=== PATIENT | female | born 1955 | race Caucasian/White ===

== ENCOUNTER → 2019-07-13 | Emergency (ER) | payer SELFPAY ==
[~2019-07-13] VITALS: Ht 167.6 cm; Wt 122.7 kg
[~2019-07-13] MED LIST: HYDR-3165 PO; HYDROcodone/APAP 5/325MG 1 TAB TABLET ONE; HYDROcodone/APAP 5/325MG 1 TAB TABLET PO ONE; NAPR220C4 PO; ONDANSETRON PF 4 MG/2 ML VIAL. IVP ONE; TRAM50TA PO
--- NOTE | 2019-07-13 17:46 | PHYS DOC ---
Past History Past Medical History: Arthritis, Depression, Fibromyalgia, GERD, High Cholesterol, IBS, Other Additional Past Medical Histor: urinary incontinence (JEF MARTINS DO) Past Surgical History: Appendectomy, Hysterectomy, Other Additional Past Surgical Histo: cystocele (JEF MARTINS DO) Smoking: Non-smoker Alcohol Use: Occasionally Drug Use: None, Other Social History Narrative: topical marijuana cream (JEF MARTINS DO) Adult General Chief Complaint Chief Complaint: MULTIPLE TRAUMA/FALL HPI HPI Patient is a 63-year-old female presents complaining of right head, right neck, right hip, right knee, and to a much lesser extent right shoulder pain post a fall. Patient was sitting on a suspended bench and did not notice that one of the suspension changes was missing. She fell backwards into her right off of this bench. Bensch was approximately a foot off the ground. She struck her head on a rubberized surface overlying concrete. There was no loss of consciousness. Patient has been having increasing pain since this happened at approximately 3:00 this afternoon. She took her usual pain medicines for her fibromyalgia shortly before this happened. She has taken no additional medicines since this is happened. She denies any numbness or tingling. She has been able to walk.[] (JEF MARTINS DO) Review of Systems Review of Systems Constitutional: Denies fever or chills [] Eyes: Denies change in visual acuity, redness, or eye pain [] HENT: Denies nasal congestion or sore throat [] Respiratory: Denies cough or shortness of breath [] Cardiovascular: No additional information not addressed in HPI [] GI: Denies abdominal pain, nausea, vomiting, bloody stools or diarrhea [] : Denies dysuria or hematuria [] Musculoskeletal: Denies back pain, see history of present illness[] Integument: Denies rash or skin lesions [] Neurologic: Denies focal weakness or sensory changes, see history of present illness [] Endocrine: Denies polyuria or polydipsia [] All other systems were reviewed and found to be within normal limits, except as documented in this note. (JEF MARTINS DO) Allergies Allergies Allergies Coded Allergies Type Severity Reaction Last Updated Verified Penicillins Allergy Severe Anaphylaxis 07/13/19 Yes erythromycin base Allergy Severe Anaphylaxis 07/13/19 Yes (JEF MARTINS DO) Physical Exam Physical Exam Constitutional: Well developed, well nourished, no acute distress, non-toxic appearance. [] HENT: Normocephalic, tenderness to right temporal parietal region, bilateral external ears normal, TMs are clear without any blood or fluid oropharynx moist, no oral exudates, nose normal. [] Eyes: PERRLA, EOMI, conjunctiva normal, no discharge. [] Neck: Normal range of motion, tenderness in the right cervical paraspinal musculature. No step-off or crepitus., supple, no stridor. [] Cardiovascular:Heart rate regular rhythm, no murmur [] Lungs & Thorax: Bilateral breath sounds clear to auscultation [] Abdomen: Bowel sounds normal, soft, no tenderness, no masses, no pulsatile masses. [] Skin: Warm, dry, no erythema, no rash. [] Back: No tenderness, no CVA tenderness. [] Extremities: Right shoulder has full active range of motion. Diffuse muscular tenderness. No increased pain with axial loading. No clavicular tenderness. A joint above and a joined below were evaluated and were normal. She is distally neurovascularly intact. Right hip has diffuse tenderness. No pelvic instability. No crepitus. No increased pain with axial loading. She is distally neurovascularly intact. Right knee has decreased flexion, full extension, no varus or valgus laxity, diffuse tenderness, no edema or effusion when compared with the left side. Negative drawer, negative Filippo test. A joint below was evaluated and was normal. The other 2 extremities show: No tenderness, no cyanosis, no clubbing, ROM intact, no edema. [] Neurologic: Alert and oriented X 3, normal motor function, normal sensory function, no focal deficits noted. [] Psychologic: Affect normal, judgement normal, mood normal. [] ([facility] Current Patient Data Vital Signs Vital Signs Date Time Temp Pulse Resp B/P (MAP) Pulse Ox O2 Delivery O2 Flow Rate FiO2 07/13/19 17:10 98.8 63 20 129/76 (93) Room Air 95.0 07/13/19 17:10 95 ([facility]) EKG EKG [] ([facility]) Radiology/Procedures Radiology/Procedures [] (EIDENJEF STEVENSON DO) Radiology/Procedures CT head/cervical spine: Radiology findings reviewed. No acute intracranial injury or cervical spine injury per radiologist report. Right hip x-ray/right knee x-ray: Advanced osteoarthritis. No obvious displaced fracture on preliminary ED review. Radiology report pending (SOFIA WING DO) Course & Med Decision Making Course & Med Decision Making Pertinent Labs and Imaging studies reviewed. (See chart for details) ED course: Patient arrived, was placed in bed, and tolerated exam well. At the time of this dictation, at 1800, patient care is being endorsed to the nighttime physician pending imaging studies. Patient deferred pain medicine at the time of exam.[] (JEF MARTINS DO) Course & Med Decision Making Imaging Findings reviewed with patient. Pain addressed. Patient is comfortable with discharged home and agrees to follow-up with local PCP. Recommendations are for supportive care. (SOFIA WING DO) Dragon Disclaimer Dragon Disclaimer This electronic medical record was generated, in whole or in part, using a voice recognition dictation system. (JEF MARTINS DO) Departure Departure: Impression: Primary Impression: Minor head injury Additional Impressions: Cervical sprain Right knee pain Right hip pain Disposition: HOME, SELF-CARE Condition: STABLE Referrals: PCP,NO (PCP) Patient Instructions: Cervical Sprain, [id number], Head Injury, Adult, [id number], Hip Pain, Knee Pain Additional Instructions: Please go home and rest. Apply ice to affected areas 20-30 minutes every 2-3 hours. Take tramadol and ibuprofen for pain and hydrocodone as needed for additional relief. Follow-up with your PCP in 2-3 days for reevaluation. Return to the ED if new or worsening symptoms. Scripts Hydrocodone Bit/Acetaminophen (NORCO 5-325 TABLET) 1 Each Tablet 1 TAB PO TID, #15 TAB Prov: SOFIA WING DO 07/13/19 Problem Qualifiers JEF MARTINS DO Jul 13, 2019 17:46 SOFIA WING DO Jul 13, 2019 19:44
--- NOTE | 2019-07-13 18:45 | RAD ---
STUDY: CT head and cervical spine without contrast INDICATION: Fall. Right-sided head injury and neck pain. COMPARISON: None. TECHNIQUE: Axial CT imaging through the head and cervical spine without the use of intravenous contrast. Sagittal and coronal reformats were obtained. One or more of the following individualized dose reduction techniques were utilized for this examination: 1. Automated exposure control 2. Adjustment of the mA and/or kV according to patient size 3. Use of iterative reconstruction technique. FINDINGS: CT head: No acute intracranial hemorrhage. Mahmood-white matter differentiation is maintained. No midline shift or hydrocephalus. The calvarium is intact. Normally aerated paranasal sinuses and mastoid air cells. CT cervical spine: Degraded evaluation below C4 secondary to beam attenuation by the patient's shoulders. This limits evaluation of the osseous structures and central canal contents below this level. Taking into consideration the above limitations, no acute fracture seen throughout the cervical or upper thoracic spine. Multilevel degenerative changes with discogenic arthrosis most pronounced at C5-C6. Minimal grade 1 anterolisthesis of C3 on C4 and C4 on C5. Multilevel facet degeneration, uncovertebral joint hypertrophy and disc osteophyte complex formation. This results in varying degrees of mostly mild to moderate neural foraminal encroachment though more severe on the left at C3-C4. No prevertebral hematoma is apparent. The bilateral carotid systems take a retropharyngeal course. No apical pneumothorax. IMPRESSION: CT head: 1. No acute intracranial abnormality by CT. CT cervical spine: 1. Taking into consideration degraded evaluation below C4 due to body habitus, no acute fracture or traumatic malalignment is identified. 2. Multifactorial degenerative changes, as above. Electronically signed by: CLYDE WEINER MD (07/13/2019 6:43 PM) [facility] [place]
[2019-07-13 19:40] VITALS: BP 118/81
--- NOTE | 2019-07-14 00:23 | RAD ---
Indication:Fall with right hip and knee pain. TECHNIQUE: 3 views of the right knee COMPARISON:None FINDINGS/ impression: No acute fracture or dislocation. Severe tricompartmental osteoarthritis. No joint effusion. Electronically signed by: Jerome Valverde DO (07/14/2019 12:20 AM) [facility]
--- NOTE | 2019-07-14 00:24 | RAD ---
Indication: Fall with right hip pain TECHNIQUE: Single AP view of the pelvis and 2 views of the right hip joint COMPARISON: None FINDINGS/ impression: SI joints within normal limits. No acute fracture or dislocation. Mild bilateral hip joint osteoarthritis. Electronically signed by: Jerome Valverde DO (07/14/2019 12:21 AM) [facility]
== END ==
LOC: ER 16:47
DX: S13.4XXA Sprain of ligaments of cervical spine, initial encounter (principal); S09.90XA Unspecified injury of head, initial encounter; M25.561 Pain in right knee; M25.551 Pain in right hip; M19.90 Unspecified osteoarthritis, unspecified site; M79.7 Fibromyalgia; K21.9 Gastro-esophageal reflux disease without esophagitis; E78.00 Pure hypercholesterolemia, unspecified; K58.9 Irritable bowel syndrome, unspecified; Z88.0 Allergy status to penicillin; Z88.1 Allergy status to other antibiotic agents; W17.89XA Other fall from one level to another, initial encounter; Y93.89 Activity, other specified; Y92.89 Other specified places as the place of occurrence of the external cause; Y99.8 Other external cause status
CPT/HCPCS: 70450; 72125; 73502; 73562; 99284

== ENCOUNTER 2021-04-17 11:41 | Emergency (ER) | payer SELFPAY ==
[~2021-04-17] VITALS: Ht 167.6 cm; Wt 123.5 kg
[~2021-04-17 11:41] MED LIST changes: -HYDROcodone/APAP 5/325MG 1 TAB TABLET ONE; -HYDROcodone/APAP 5/325MG 1 TAB TABLET PO ONE; -ONDANSETRON PF 4 MG/2 ML VIAL. IVP ONE
[2021-04-17] MEDS ORDERED: IV NORMAL SALINE 1,000ML 1,000 ML IV ONE (12:15)
[2021-04-17 12:30] LABS: BASO # 0.1 x10^3/uL (0.0-0.2); BASO % 1 % (0-3); EOS # 0.1 x10^3/uL (0.0-0.7); EOS % 2 % (0-3); HEMOGLOBIN 15.2 g/dL (12.0-15.5); LYMPH % 42 % (24-48); MEAN CORPUSCULAR HEMOGLOBIN 31 pg (25-35); MEAN CORPUSCULAR HGB CONC 34 g/dL (31-37); MEAN CORPUSCULAR VOLUME 91 fL (79-100); MONO # 0.8 x10^3/uL (0.0-1.1); MONO % 11 % (0-9); NEUT # 3.2 x10^3uL (1.8-7.7); NEUT % 45 % (31-73); PLATELET COUNT 291 x10^3/uL (140-400); RED BLOOD COUNT 4.98 x10^6/uL (3.50-5.40); RED CELL DISTRIBUTION WIDTH 13.5 % (11.5-14.5); WHITE BLOOD COUNT 7.3 x10^3/uL (4.0-11.0)
--- NOTE | 2021-04-17 12:37 | PHYS DOC ---
Past History Past Medical History: Arthritis, Depression, Fibromyalgia, GERD, High Cholesterol, IBS, Other Additional Past Medical Histor: urinary incontinence Past Surgical History: Appendectomy, Hysterectomy, Other Additional Past Surgical Histo: cystocele Smoking: Non-smoker Alcohol Use: Occasionally Drug Use: None, Other General Adult EDM: Chief Complaint: CHEST PAIN HPI: HPI: Patient is a 65-year-old female who presents with heart fluttering for the last year. Patient states that symptoms are intermittent. Patient states in the last month she is also been having nausea and lightheadedness with heart fluttering. Patient reports episodes last about 30 minutes. Patient states "this morning my heart fluttering woke me up and I also felt lightheaded, nauseous and some fatigue ". "All felt tired with walking from my car to the house". "The last month I have also just been feeling lightheaded and some dizziness without symptoms of heart fluttering". Patient reports she is been taking Compazine at home for nausea which has helped. Only symptoms at this time are nausea. Denies recent illness. Denies shortness of breath. Denies chest pain. Patient has a history of arthritis, GERD. Review of Systems: Review of Systems: Constitutional: Denies fever or chills Eyes: Denies change in visual acuity HENT: Denies nasal congestion or sore throat Respiratory: Denies cough or shortness of breath Cardiovascular: Reports heart fluttering. Denies chest pain. GI: Reports nausea. Denies abdominal pain, vomiting, diarrhea : Denies dysuria Musculoskeletal: Denies back pain or joint pain Integument: Denies rash Neurologic: Reports lightheadedness. Denies sensory changes or focal weakness. Endocrine: Denies polyuria or polydipsia Lymphatic: Denies swollen glands Psychiatric: Denies depression or anxiety Current Medications: Current Meds: Current Medications Medications (Trade) Dose Ordered Sig/Jahaira Start Time Stop Time Status Last Admin Dose Admin Sodium Chloride 1,000 ml @ 1,000 mls/hr 1X ONCE 04/17/21 12:15 04/17/21 13:14 Allergies: Allergies: Allergies Coded Allergies Type Severity Reaction Last Updated Verified Penicillins Allergy Severe Anaphylaxis 07/13/19 Yes erythromycin base Allergy Severe Anaphylaxis 07/13/19 Yes Physical Exam: PE: Constitutional: Well developed, well nourished, no acute distress, non-toxic appearance. [] HENT: Normocephalic, atraumatic, bilateral external ears normal, oropharynx moist, no oral exudates, nose normal. [] Eyes: PERRLA, EOMI, conjunctiva normal, no discharge. [] Neck: Normal range of motion, no tenderness, supple, no stridor. [] Cardiovascular:Heart rate regular rhythm, no murmur [] Lungs & Thorax: Bilateral breath sounds clear to auscultation [] Abdomen: Bowel sounds normal, soft, no tenderness, no masses, no pulsatile masses. [] Skin: Warm, dry, no erythema, no rash. [] Back: No tenderness, no CVA tenderness. [] Extremities: No tenderness, no cyanosis, no clubbing, ROM intact, no edema. [] Neurologic: Alert and oriented X 3, normal motor function, normal sensory function, no focal deficits noted. [] Psychologic: Affect normal, judgement normal, mood normal. [] EKG: EKG: Sinus rhythm. Heart rate 72 bpm. Intervals normal. Douglass normal. Read by Dr. Madsen. [] Radiology/Procedures: Radiology/Procedures: []AP portable chest radiograph 04/17/2021 Clinical History: Chest pain. An AP erect portable digital radiograph of the chest was obtained. No previous studies are available for comparison. The cardiac silhouette is normal in size. The thoracic aorta is mildly tortuous. Mild elevation right hemidiaphragm is seen. No acute pulmonary infiltrate is noted. No pneumothorax or pleural effusion is seen. Degenerative changes are seen involving the thoracic spine and both shoulders. IMPRESSION: No acute abnormality is seen. Electronically signed by: Lex Brumfield MD (04/17/2021 1:02 PM) [id number] Heart Score: C/O Chest Pain: No Risk Factors: Risk Factors: DM, Current or recent (<one month) smoker, HTN, HLP, family history of CAD, obesity. Risk Scores: Score 0 - 3: 2.5% MACE over next 6 weeks - Discharge Home Score 4 - 6: 20.3% MACE over next 6 weeks - Admit for Clinical Observation Score 7 - 10: 72.7% MACE over next 6 weeks - Early Invasive Strategies Course & Med Decision Making: Course & Med Decision Making Pertinent Labs and Imaging studies reviewed. (See chart for details) [] 65-year-old female who presents with intermittent episodes of heart fluttering for the last year. Patient denies chest pain with episodes. Patient does report she has nausea and lightheadedness when episodes occur. Patient reports episodes last usually around 30 minutes and are always when she is laying in a supine position. Patient states last episode was at 9 AM this morning that woke her up out of her sleep. Patient's only symptom on arrival is nausea. Patient also reports she has had some nausea and fatigue over the last month intermittently without symptoms of her heart fluttering. Patient denies cardiac history. Patient has not received Covid vaccine and denies history of Covid. Patient given Compazine for nausea and normal saline bolus. All labs unremarkable. Chest x-ray is unremarkable. Troponin is negative. UA negative for infection. EKG shows sinus rhythm, heart rate 72 bpm. Discussed results with patient. Patient instructed to follow-up with her PCP for further management. Patient was given referral for cardiology. Patient is hemodynamically stable. Patient is appreciative and okay with discharge plan. Dragon Disclaimer: Marina Disclaimer: This electronic medical record was generated, in whole or in part, using a voice recognition dictation system. Departure Departure: Impression: Primary Impression: Heart palpitations Additional Impression: Nausea Disposition: 01 HOME / SELF CARE / HOMELESS Condition: STABLE Referrals: PCP,DAVID (PCP) Patient Instructions: Palpitations, [id number] Additional Instructions: You are seen in the emergency room for intermittent heart palpitations, nausea. All of your lab work was unremarkable. Your EKG showed normal sinus rhythm. You were given fluids and also Compazine for nausea. I am giving you a referral for cardiology. Please contact your PCP and also wrapper stemmer operator for appointment for further work-up. If you start having chest pain, shortness of breath or any worsening symptoms please return to the emergency room. Dr. Ahumada- Cardiology [address] [facility] [place], [place] [id number] EMERGENCY DEPARTMENT GENERAL DISCHARGE INSTRUCTIONS Thank you for coming to [facility] (ED) today and trusting us with you care. We trust that you had a positivie experience in our Emergency Department. If you wish to speak to the department management, you may call the director at [phone]. YOUR FOLLOW UP INSTRUCTIONS ARE FOLLOWS: 1. Do you have a private Doctor? If you do not have a private doctor, please ask for a resource list of physicians or clinics that may be able to assist you with follow up care. 2. The Emergency Physician has interpreted your x-rays. The X-Ray specialist will also review them. If there is a change in the findings, you will be notified in 48 hours when at all possible. 3. A lab test or culture has been done, your results will be reviewed and you will be notified if you need a change in treatment. ADDITIONAL INSTRUCTIONS AND INFORMATION: 1. Your care today has been supervised by a physician who is specially trained in emergency care. Many problems require more than one evaluation for a complete diagnosis and treatment. We recommend that you schedule your follow up appointment as recommended to ensure complete treatment of you illness or injury. If you are unable to obtain follow up care and continue to have a problem, or if your condition worsens, we recommend that you return to the ED. 2. We are not able to safely determine your condition over the phone nor are we able to give sound medical advice over the phone. For these safety reasons, if you call for medical advice we will ask you to come to the ED for further evaluation. 3. If you have any questions regarding these discharge instructions please call the ED at [phone]. SAFETY INFORMATION: In the interest of safety, wellness, and injury prevention; we encourage you to wear your sealbelt, if you smoke; quite smoking, and we encourage family to use a pro tective helmet for bicycling and other sporting events that present an increased risk for head injury. IF YOUR SYMPTOMS WORSEN OR NEW SYMPTOMS DEVELOP, OR YOU HAVE CONCERNS ABOUT YOUR CONDITION; OR IF YOUR CONDITION WORSENS WHILE YOU ARE WAITING FOR YOUR FOLLOW UP APPOINTMENT; EITHER CONTACT YOUR PRIMARY CARE DOCTOR, THE PHYSICIAN WHOSE NAME AND NUMBER YOU WERE GIVEN, OR RETURN TO THE ED IMMEDIATELY. Scripts Prochlorperazine Maleate (Compazine) 10 Mg Tablet 1 TAB PO TID PRN for nausea for 10 Days, #30 TAB 0 Refills Prov: NATHALY PERRIN APRN 04/17/21 NATHALY PERRIN APRN Apr 17, 2021 12:37
[2021-04-17 12:40] LABS: CALCIUM 8.9 mg/dL (8.5-10.1); CREATININE 0.9 mg/dL (0.6-1.0); GFR 63.2; POTASSIUM 4.8 mmol/L (3.5-5.1)
[2021-04-17] MEDS ORDERED: PROCHLORPERAZINE 10 MG/2 ML VIAL. IV ONE (12:45)
[2021-04-17 12:52] LABS: ALBUMIN 3.5 g/dL (3.4-5.0); ALBUMIN/GLOBULIN RATIO 0.9 (1.0-1.7); TOTAL BILIRUBIN 0.6 mg/dL (0.2-1.0); TOTAL PROTEIN 7.3 g/dL (6.4-8.2)
--- NOTE | 2021-04-17 13:05 | RAD ---
AP portable chest radiograph 04/17/2021 Clinical History: Chest pain. An AP erect portable digital radiograph of the chest was obtained. No previous studies are available for comparison. The cardiac silhouette is normal in size. The thora cic aorta is mildly tortuous. Mild elevation right hemidiaphragm is seen. No acute pulmonary infiltra te is noted. No pneumothorax or pleural effusion is seen. Degenerative changes are seen involving the thoracic spine and both shoulders. IMPRESSION: No acute abnormality is seen. Electronically signed by: Lex Brumfield MD (04/17/2021 1:02 PM) [id number]
[2021-04-17] MEDS ORDERED: PROC10TA57 PO (13:34)
[2021-04-17 13:35] LABS: BACTERIA,URINE MOD /HPF (0-FEW); BILIRUBIN,URINE NEG (NEG); CLARITY,URINE CLEAR; COLOR,URINE STRAW; GLUCOSE,URINE NEG (NEG); NITRITE,URINE NEG (NEG); RBC,URINE 0 /HPF (0-2); SQUAMOUS EPITHELIAL CELL,UR MOD /LPF; UROBILINOGEN,URINE 0.2 mg/dL (0.2 mg/dL)
[2021-04-17 13:47] VITALS: BP 135/74
--- NOTE | 2021-04-18 11:29 | EKG ---
[address] [address] Test Date: 2021-04-17 Test Time: 11:48:40 Pat Name: JENNY AKHTAR Department: Room: Gender: F Putter In: KATHI : 1955 Requested By: NATHALY PERRIN Order Number: [id number] Reading MD: Measurements Intervals [place] Rate: 72 P: 46 NC: 166 QRS: 15 QRSD: 78 T: 32 QT: 384 QTc: 422 Interpretive Statements SINUS RHYTHM NORMAL ECG RI6.02 No previous ECG available for comparison
== END 2021-04-17 14:00 | disposition home or self-care (01) ==
LOC: ER 11:41
DX: R00.2 Palpitations (principal); R42 Dizziness and giddiness; R11.0 Nausea; M19.90 Unspecified osteoarthritis, unspecified site; F32.9 Major depressive disorder, single episode, unspecified; M79.7 Fibromyalgia; K21.9 Gastro-esophageal reflux disease without esophagitis; E78.00 Pure hypercholesterolemia, unspecified; K58.9 Irritable bowel syndrome, unspecified; Z88.0 Allergy status to penicillin; Z88.1 Allergy status to other antibiotic agents
CPT/HCPCS: 36415; 71045; 80053; 81001; 83880; 84484; 85025; 87086; 93005; 96361; 96374; 99285; J0780; J7030